=== PATIENT | female | born 1975 | race Two or more races ===

== ENCOUNTER 2023-02-28 11:39 | Emergency (ER) | payer OTHER ==
[~2023-02-28] VITALS: Ht 167.6 cm; Wt 64.4 kg
== END 2023-02-28 15:37 | disposition home or self-care (01) ==
LOC: ER 11:39
DX: S09.8XXA Other specified injuries of head, initial encounter (principal); V43.62XA Car passenger injured in collision with other type car in traffic accident, initial encounter; Y93.89 Activity, other specified; Y92.413 State road as the place of occurrence of the external cause; S29.8XXA Other specified injuries of thorax, initial encounter